=== PATIENT | male | born 1985 | race Caucasian/White ===

== ENCOUNTER 2020-08-10 04:08 | Emergency (ER) | payer OTHER ==
[2020-08-10] MEDS ORDERED: KETOROLAC 15 MG/ML 1 ML VIAL IM STA (04:22)
[2020-08-10] MEDS ORDERED: ACETAMINOPHEN TAB 500 MG TAB PO STA (04:22)
--- NOTE | 2020-08-10 04:25 | ED ---
Chest Pain HPI <Kenneth Acharya - Last Filed: 08/10/20 08:51> - General Source: patient, RN notes reviewed, old records reviewed Mode of arrival: ambulatory Limitations: no limitations - History of Present Illness MD Complaint: chest pain, other (Right upper chest pain left lower back pain) Onset: during rest, during exertion Pain Location: right chest Pain Radiation: back Severity: moderate Severity scale (1-10): 4 Quality: tightness, sharp Consistency: intermittent Improves With: nothing Worsens With: nothing Other Symptoms: cough Treatments Prior to Arrival: none <Kenneth Bautista - Last Filed: 08/14/20 00:03> - General Chief Complaint: Shortness of Breath Stated Complaint: APPLE Time Seen by Provider: 08/10/20 04:11 - History of Present Illness Initial Comments: This is a 34-year-old male to the ER for evaluation in regards to chest pain right-sided chest pain left lower back pain, different areas of chest pain or shortness of breath symptoms started tonight. Patient spoke little bit warm was concern for possible coronavirus. Otherwise patient presents today with his dad and tomorrow was supposed to spend [place] with his mom. Patient is active shortness breath and chest pain currently. No travel history no sick contacts. Patient denies history of drug or alcohol abuse (Kenneth Bautista) - Related Data Previous Rx's Medication Instructions Recorded Azithromycin [Zithromax Tri-Joey] 500 mg PO DAILY #3 tab 08/10/20 Dexamethasone [Decadron] 6 mg PO DAILY #10 tablet 08/10/20 Allergies Allergy/AdvReac Type Severity Reaction Status Date / Time No Known Allergies Allergy Verified 08/10/20 04:14 Review of Systems ROS Other: All systems not noted in ROS Statement are negative. <Kenneth Acharya - Last Filed: 08/10/20 08:51> ROS Other: All systems not noted in ROS Statement are negative. <Kenneth Bautista - Last Filed: 08/14/20 00:03> ROS Statement: Those systems with pertinent positive or pertinent negative responses have been documented in the HPI. Past Medical History Past Medical History: No Reported History History of Any Multi-Drug Resistant Organisms: None Reported Past Surgical History: No Surgical Hx Reported Past Psychological History: No Psychological Hx Reported Smoking Status: Current every day smoker Past Alcohol Use History: None Reported Past Drug Use History: Opiates <Kenneth Bautista - Last Filed: 08/14/20 00:03> General Exam General appearance: alert, in no apparent distress, anxious Head exam: Present: atraumatic, normocephalic, normal inspection Eye exam: Present: normal appearance, PERRL, EOMI. Absent: scleral icterus, conjunctival injection, periorbital swelling ENT exam: Present: normal exam, mucous membranes moist Neck exam: Present: normal inspection. Absent: tenderness, meningismus, lymphadenopathy Respiratory exam: Present: normal lung sounds bilaterally. Absent: respiratory distress, wheezes, rales, rhonchi, stridor Cardiovascular Exam: Present: regular rate, normal rhythm, normal heart sounds. Absent: systolic murmur, diastolic murmur, rubs, gallop, clicks GI/Abdominal exam: Present: soft, normal bowel sounds. Absent: distended, tenderness, guarding, rebound, rigid Extremities exam: Present: normal inspection, full ROM, normal capillary refill. Absent: tenderness, pedal edema, joint swelling, calf tenderness Back exam: Present: normal inspection Neurological exam: Present: alert, oriented X3, CN II-XII intact Psychiatric exam: Present: normal affect, normal mood Skin exam: Present: warm, dry, intact, normal color. Absent: rash <Kenneth Bautista - Last Filed: 08/14/20 00:03> Course <Kenneth Bautista - Last Filed: 08/14/20 00:03> Vital Signs 08/10/20 08/10/20 08/10/20 04:09 04:15 06:28 Temperature 100 F H 97.9 F Pulse Rate 87 101 H Respiratory 19 18 18 Rate Blood Pressure 199/90 130/83 O2 Sat by Pulse 97 97 Oximetry 08/10/20 09:01 Temperature Pulse Rate 71 Respiratory 16 Rate Blood Pressure 138/73 O2 Sat by Pulse 99 Oximetry - Reevaluation(s) Reevaluation #1: 08/10/20 05:47 Medical records reviewed (Kenneth Bautista) Reevaluation #2: 08/10/20 05:47 Patient will get lab values drawn regards to elevated blood pressure and abnormal x-ray as well as obtain CT of the chest (Kenneth Bautista) Chest Pain MDM <Kenneth Acharya - Last Filed: 08/10/20 08:51> <Kenneth Bautista - Last Filed: 08/14/20 00:03> - MDM CAT scan shows no PE. CAT scan did show some patchy infiltrates bilaterally consistent with potential COVID 19. (Kenneth Acharya) 34 male with sinus symptoms of coronavirus, patient symptoms are much improved here in the ER, patient can be discharged home (Kenneth Bautista) Disposition Is patient prescribed a controlled substance at d/c from ED?: No Time of Disposition: 08:52 <Kenneth Acharya - Last Filed: 08/10/20 08:51> <Kenneth Bautista - Last Filed: 08/14/20 00:03> Clinical Impression: Pneumonitis Disposition: HOME SELF-CARE Instructions (If sedation given, give patient instructions): Pneumonitis (ED) Prescriptions: Dexamethasone [Decadron] 6 mg PO DAILY #10 tablet Azithromycin [Zithromax Tri-Joey] 500 mg PO DAILY #3 tab Referrals: None,Stated [Primary Care Provider] - 1-2 days
--- NOTE | 2020-08-10 05:21 | XR ---
EXAM: XR Chest, 2 Views CLINICAL HISTORY: ITS.REASON XR Reason: cp TECHNIQUE: Frontal and lateral views of the chest. COMPARISON: No relevant prior studies available. FINDINGS: Lungs: Small nodular density in the right upper lung. This may represent calcified lesion given the density. Note that overlapped artifact can give this appearance. Focal increased opacity in the retrocardiac/left infrahilar region. Pleural space: No pleural effusion. No pneumothorax. Heart: Within normal limits Mediastinum: Unremarkable. Bones/joints: Unremarkable. IMPRESSION: 1. Suspect developing infiltrate in the left infrahilar region. 2. Small nodular lesion projecting over the right upper lung which may represent calcified nodule versus overlapping artifact. Either short- term follow-up or further evaluation with chest CT could be obtained.
[2020-08-10] MEDS ORDERED: MORPHINE SULFATE 4 MG/ML SYRINGE IV STA (05:44)
[2020-08-10] MEDS ORDERED: SODIUM CHLORIDE 0.9% 1,000 ML IV STA (05:44)
[2020-08-10 06:08] LABS: Basophils # (A) 0.1 k/uL (0-0.2); Basophils % (A) 1 %; Eosinophils # (A) 0.2 k/uL (0-0.7); Eosinophils % (A) 2 %; HCT 35.2 % (39.0-53.0); HGB 12.4 gm/dL (13.0-17.5); Lymphocytes # (A) 1.2 k/uL (1.0-4.8); Lymphocytes % (A) 14 %; MCHC 35.3 g/dL (31.0-37.0); MCV 87.8 fL (80.0-100.0); Mean Platelet Volume 6.7; Monocytes # (A) 0.6 k/uL (0-1.0); Monocytes % (A) 7 %; Neutrophils # (A) 6.9 k/uL (1.3-7.7); Neutrophils % (A) 76 %; Platelet Count 244 k/uL (150-450); RBC 4.01 m/uL (4.30-5.90); RDW 12.6 % (11.5-15.5); WBC 9.2 k/uL (3.8-10.6)
[2020-08-10 06:15] LABS: ALT 16 U/L (4-49); AST 30 U/L (17-59); African American GFR (CKD) >90 (>60 ml/min/1.73 sqM); Albumin 3.9 g/dL (3.5-5.0); Alkaline Phosphatase 64 U/L (38-126); Anion Gap 3 mmol/L; Blood Urea Nitrogen 13 mg/dL (9-20); Calcium 9.2 mg/dL (8.4-10.2); Carbon Dioxide 29 mmol/L (22-30); Chloride 101 mmol/L (98-107); Glucose 94 mg/dL (74-99); Magnesium 2.1 mg/dL (1.6-2.3); Non-African American GFR(CKD) >90 (>60 ml/min/1.73 sqM); Phosphorus 3.9 mg/dL (2.5-4.5); Potassium 4.4 mmol/L (3.5-5.1); Sodium 133 mmol/L (137-145); Total Bilirubin 0.5 mg/dL (0.2-1.3); Total Protein 6.6 g/dL (6.3-8.2)
[2020-08-10 06:24] LABS: INR 0.9 (<1.2); Partial Thromboplastin Time 28.1 sec (22.0-30.0); Prothrombin Time 9.3 sec (9.0-12.0)
[2020-08-10 06:31] VITALS: TEMP 97.9
[2020-08-10 06:45] LABS: D-Dimer 1.86 mg/L FEU (<0.60)
--- NOTE | 2020-08-10 08:15 | CT ---
EXAM: CT Angiography Chest With Intravenous Contrast CLINICAL HISTORY: ITS.REASON CT Reason: pe,mass TECHNIQUE: Axial computed tomographic angiography images of the chest with intravenous contrast. CTDI is 12.37 mGy and DLP is 239.8 mGy-cm. This CT exam was performed using one or more of the following dose reduction techniques: automated exposure control, adjustment of the mA and/or kV according to patient size, and/or use of iterative reconstruction technique. MIP reconstructed images were created and reviewed. COMPARISON: No relevant prior studies available. FINDINGS: Pulmonary arteries: No discrete filling defects in the pulmonary arteries. Aorta: No acute findings. No thoracic aortic aneurysm. Lungs: Nodular opacities in the right upper lobe. Additional small nodular opacities in the superior segment of both lower lobes. More confluent opacity in the posterior medial lower lobes bilaterally. Mild streaky density in the right lung base and lingula. Pleural space: Unremarkable. No significant effusion. No pneumothorax. Heart: Unremarkable. No cardiomegaly. No significant pericardial effusion. No evidence of RV dysfunction. Mediastinum: Small mediastinal lymph nodes, probably reactive. Follow- up recommended to assess for other etiology as indicated. Bones/joints: No acute fracture. No dislocation. Soft tissues: Unremarkable. Lymph nodes: Unremarkable. No enlarged lymph nodes. IMPRESSION: 1. Negative for pulmonary embolism. 2. Bilateral nodular and patchy airspace disease, nonspecific. In the appropriate clinical setting, Covid 19 can give this appearance. 3. Follow-up to clearing recommended to exclude underlying pulmonary lesions. 4. Mild mediastinal lymphadenopathy
[2020-08-10 09:02] VITALS: BP 138/73; PULSE 71; RESP 16
== END 2020-08-10 09:01 | disposition home or self-care (01) ==
LOC: EC 04:08
DX: J18.9 Pneumonia, unspecified organism (principal); Z20.828 Contact with and (suspected) exposure to other viral communicable diseases; F17.200 Nicotine dependence, unspecified, uncomplicated
CPT/HCPCS: 36415; 85379; 83880; 80053; 83735; 84100; 84484; 85025; 85610; 85730; 87635; 71046; 71275; 99285; 96374; 96361; 96372; J2270; J1885; Q9967

== ENCOUNTER 2021-05-29 13:09 | Emergency (ER) | payer OTHER ==
[2021-05-29] MEDS ORDERED: LIDOCAINE 1%-EPI 1:100,000 20 ML VIAL SQ STA (16:05)
[2021-05-29] MEDS ORDERED: SULFAMETHOX-TMP 800-160MG 1 EACH TAB PO STA (16:12)
--- NOTE | 2021-05-29 16:13 | ED ---
Skin/Abscess/FB HPI - General Chief complaint: Skin/Abscess/Foreign Body Stated complaint: Skin infection Time Seen by Provider: 05/29/21 15:16 Source: patient Mode of arrival: ambulatory Limitations: no limitations - History of Present Illness Initial comments: Braden is a 35-year-old male presents to the emergency department today for evaluation of abscess in the left axilla. Patient has a history of recurrent abscesses. Brother also has recurrent abscesses and reset recently been diagnosed with MRSA. Patient reports she's had the swelling in his left axilla for a few days, he tried to squeeze the one lump to see if it would drain but was unable to get any drainage. - Related Data Previous Rx's Medication Instructions Recorded Azithromycin [Zithromax Tri-Joey] 500 mg PO DAILY #3 tab 08/10/20 Dexamethasone [Decadron] 6 mg PO DAILY #10 tablet 08/10/20 Mupirocin 2% Oint [Bactroban 2% 1 applic NASAL TID #22 gm 05/29/21 Oint] Sulfamethox-Tmp 800-160Mg [Bactrim 1 tab PO Q12HR #14 tab 05/29/21 DS 800-160 mg] Allergies Allergy/AdvReac Type Severity Reaction Status Date / Time No Known Allergies Allergy Verified 05/29/21 14:22 Review of Systems ROS Statement: Those systems with pertinent positive or pertinent negative responses have been documented in the HPI. ROS Other: All systems not noted in ROS Statement are negative. Past Medical History Past Medical History: No Reported History History of Any Multi-Drug Resistant Organisms: None Reported Past Surgical History: No Surgical Hx Reported Past Psychological History: No Psychological Hx Reported Smoking Status: Current every day smoker Past Alcohol Use History: None Reported Past Drug Use History: Opiates General Exam - General Exam Comments Initial Comments: Physical Exam GENERAL: Patient is well-developed and well-nourished. Patient is nontoxic and well-hydrated and is in no distress. HENT: Normocephalic, Atraumatic. EYES: PERRL, EOMI PULMONARY: Unlabored respirations. CARDIOVASCULAR: RRR Warm and well perfused extremities ABDOMEN: Non-distended SKIN: Cellulitis and abscess in the left axilla : Deferred NEUROLOGIC: Alert and oriented Normal speech Normal gait MUSCULOSKELETAL: Moving all extremities with no apparent injury PSYCHIATRIC: No SI/HI Limitations: no limitations Course Vital Signs 05/29/21 05/29/21 14:22 16:33 Temperature 98.7 F 97.6 F Pulse Rate 88 90 Respiratory 20 18 Rate Blood Pressure 150/73 140/80 O2 Sat by Pulse 99 99 Oximetry Procedures - Incision & Drainage Consent Obtained: verbal consent Site: upper extremity Anesthetic Used: lidocaine 1%, with epi I&D Cleaning Method: Alcohol Wipe Scalpel Used: #11 Needle Aspiration Performed?: No Irrigation Performed?: No I&D Drainage Obtained: Pus Culture Obtained?: Yes Patient Tolerated Procedure: well, no complications Medical Decision Making - Medical Decision Making The patient was seen and evaluated history is obtained from the patient, patient with recurrent abscesses, 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 brother has MRSA as well Patient consented to I&D, I&D was performed, wound culture was obtained Patient was discharged home on Bactrim and mupirocin, advised to buy Hibiclens body wash him and his brother should both use it to decrease MRSA Disposition Clinical Impression: Abscess Disposition: HOME SELF-CARE Condition: Stable Instructions (If sedation given, give patient instructions): Abscess (ED) Prescriptions: Sulfamethox-Tmp 800-160Mg [Bactrim DS 800-160 mg] 1 tab PO Q12HR #14 tab Mupirocin 2% Oint [Bactroban 2% Oint] 1 applic NASAL TID #22 gm Is patient prescribed a controlled substance at d/c from ED?: No Referrals: None,Stated [Primary Care Provider] - 1-2 days
[2021-05-29 16:34] VITALS: BP 140/80; PULSE 90; RESP 18; TEMP 97.6
== END 2021-05-29 16:34 | disposition home or self-care (01) ==
LOC: EC 13:09
DX: L02.412 Cutaneous abscess of left axilla (principal); F17.200 Nicotine dependence, unspecified, uncomplicated
CPT/HCPCS: 10060; 87070; 87077; 87186; 87205; 99283

== ENCOUNTER 2021-07-01 17:23 | Emergency (ER) | payer OTHER ==
[2021-07-01 18:42] VITALS: BP 134/85; PULSE 75; RESP 18; TEMP 98.4
--- NOTE | 2021-07-01 20:29 | ED ---
Wound/Laceration HPI - General Chief Complaint: Wound/Laceration Stated Complaint: Right Leg infection Time Seen by Provider: 07/01/21 20:03 Source: patient, RN notes reviewed, old records reviewed Mode of arrival: ambulatory Limitations: no limitations - History of Present Illness Initial Comments: Patient is a 35-year-old male presenting to emergency Department with complaints of possible infection in his right knee. Patient states he was here one month ago, he had positive cultures for MRSA and is concerned that the same thing is happening. He states that about 3-4 days ago he was doing a lot of kneeling on his right knee and had a little sore there. He states his been having increased pain and swelling to the area. No fevers or chills, nausea or vomiting. He states going to see his doctor in a couple weeks but does not want to wait that long. He really wants antibiotics. He has no further complaints. His vital signs are stable upon arrival. - Related Data Previous Rx's Medication Instructions Recorded Azithromycin [Zithromax Tri-Joey] 500 mg PO DAILY #3 tab 08/10/20 Dexamethasone [Decadron] 6 mg PO DAILY #10 tablet 08/10/20 Mupirocin 2% Oint [Bactroban 2% 1 applic NASAL TID #22 gm 05/29/21 Oint] Sulfamethox-Tmp 800-160Mg [Bactrim 1 tab PO Q12HR #14 tab 05/29/21 DS 800-160 mg] Sulfamethox-Tmp 800-160Mg [Bactrim 1 each PO Q12HR 5 Days #10 tab 07/01/21 Ds] Allergies Allergy/AdvReac Type Severity Reaction Status Date / Time No Known Allergies Allergy Verified 07/01/21 18:39 Review of Systems ROS Statement: Those systems with pertinent positive or pertinent negative responses have been documented in the HPI. ROS Other: All systems not noted in ROS Statement are negative. Past Medical History Past Medical History: No Reported History History of Any Multi-Drug Resistant Organisms: MRSA Date of last positivie culture/infection: 05/29/21 MDRO Source:: [facility] Past Surgical History: No Surgical Hx Reported Past Psychological History: No Psychological Hx Reported Smoking Status: Current every day smoker Past Alcohol Use History: None Reported Past Drug Use History: Opiates General Exam - General Exam Comments Initial Comments: GENERAL: Patient is well-developed and well-nourished. Patient is nontoxic and in no acute distress. HEAD: Atraumatic, normocephalic. EYES: Pupils equal round and reactive to light, extraocular movements intact, sclera anicteric, conjunctiva are normal. Eyelids were unremarkable. ENT: Moist mucous membranes. LUNGS: Unlabored respirations. Breath sounds clear to auscultation bilaterally and equal. No wheezes rales or rhonchi. HEART: Regular rate and rhythm without murmurs, rubs or gallops. MUSCULOSKELETAL: Normal extremities with adequate strength and normal range of motion, no pitting or edema. No clubbing or cyanosis. NEUROLOGICAL: Patient is alert and oriented x 3. SKIN: Warm, Dry, normal turgor, no rashes. Patient has a small sore on the anterior aspect of his right knee, some mild erythema,swelling or rash. Limitations: no limitations Course Vital Signs 07/01/21 18:39 Temperature 98.4 F Pulse Rate 75 Respiratory 18 Rate Blood Pressure 134/85 O2 Sat by Pulse 100 Oximetry Medical Decision Making - Medical Decision Making Patient is a 35-year-old male here with concerns for possible infection on his right knee from a small abrasion. Does a history of MRSA infections. He is very concerned this could get worse. He does have some very mild erythema and pain noted along the anterior aspect the right knee, he has full range of motion, normal gait. No stiff skin swelling or deformity. Patient is very concerned, I will give him a short course of Bactrim. Recommend following up this primary care. He is agreeable to this plan of care and he is stable for discharge. Disposition Clinical Impression: Right knee pain Disposition: HOME SELF-CARE Condition: Stable Instructions (If sedation given, give patient instructions): Knee Pain (ED) Additional Instructions: Please return to the Emergency Department if symptoms worsen or any other concerns. Take antibiotic as prescribed. Follow-up with your primary care. Prescriptions: Sulfamethox-Tmp 800-160Mg [Bactrim Ds] 1 each PO Q12HR 5 Days #10 tab Is patient prescribed a controlled substance at d/c from ED?: No Referrals: None,Stated [Primary Care Provider] - 1-2 days Time of Disposition: 20:29
[2021-07-01] MEDS ORDERED: SULFAMETHOX-TMP 800-160MG 1 EACH TAB PO STA (20:39)
== END 2021-07-01 20:49 | disposition home or self-care (01) ==
LOC: EC 17:23
DX: M25.561 Pain in right knee (principal); F17.200 Nicotine dependence, unspecified, uncomplicated
CPT/HCPCS: 99283